=== PATIENT | female | born 1960 | race Caucasian/White ===

== ENCOUNTER 2019-01-12 11:36 | Emergency (ER) | payer OTHER ==
[~2019-01-12] VITALS: Ht 154.9 cm; Wt 49.9 kg
[2019-01-12 11:50] VITALS: BP 147/90
--- NOTE | 2019-01-12 12:00 | NUR ---
PT AMBULATES TO BED 11
--- NOTE | 2019-01-12 12:12 | NUR ---
PT BIB FAMILY C/O GENERAL WEAKNESS X 2 WEEKS. PCP DIAGNOSED HER WITH SALMONELLA AND THEN AT A VISIT ON MONDAY TO [facility] SHE WAS DIAGNOSED GENERAL WEAKNESS AND DISCHARGED. +N/V. 10/ HEADACHE. LAST KNOWN WELL WAS 2 WEEKS AGO. PT HAS FULL CLEAR SPEECH, EQUAL MUSCLE STRENGTH BILAT AND IS ABLE TO AMBULATE. DENIES N/V/D; SKIN IS PINK/WARM/DRY; AAOX4 WITH EVEN AND STEADY GAIT; LUNGS CLEAR BL; HR EVEN AND REGULAR; PT DENIES ANY FEVER, CP, SOB, OR COUGH AT THIS TIME; PATIENT STATES PAIN OF 10/10 AT THIS TIME; VSS; PATIENT POSITIONED FOR COMFORT; HOB ELEVATED; BEDRAILS UP X2; BED DOWN. ER MD MADE AWARE OF PT STATUS.FAMILY AT BEDSIDE.
[2019-01-12] MEDS ORDERED: NACL 0.9% 2,000 ML IV SCH (13:03)
[2019-01-12] MEDS ORDERED: PROMETHAZINE 25 MG/ML VIAL IM ONE (13:05)
[2019-01-12] MEDS ORDERED: LEVOFLOXACIN 500 MG/D5W PREMIX 100 ML IV ONE (13:05)
[2019-01-12 13:37] LABS: BASOPHILS % (AUTO) 0.5 % (0.0-2.0); EOSINOPHILS % (AUTO) 0.2 % (0.0-4.0); HEMATOCRIT 45.7 % (36-48); HEMOGLOBIN 16.2 g/dL (12.0-16.0); LYMPHOCYTES # (AUTO) 2.1 K/uL (2.5-16.5); LYMPHOCYTES % (AUTO) 20.3 % (20.5-51.1); MEAN CORPUSCULAR HEMOGLOBIN 33 pg (27-31); MEAN CORPUSCULAR HGB CONC 36 g/dL (33-37); MONOCYTES # (AUTO) 0.8 K/uL (0.8-1.0); MONOCYTES % (AUTO) 7.3 % (1.7-9.3); NEUTROPHILS # (AUTO) 7.6 K/uL (1.8-7.7); NEUTROPHILS % (AUTO) 71.7 % (42.2-75.2); PLATELET COUNT (AUTO) 546 K/uL (140-450); RED BLOOD CELL COUNT(AUTO) 4.86 MIL/uL (4.20-5.40); RED CELL DISTRIBUTION WIDTH 12.7 % (11.6-13.7); WHITE BLOOD COUNT (AUTO) 10.6 K/uL (4.8-10.8)
[2019-01-12 14:03] LABS: PROTHROMBIN TIME 10.7 secs (10.8-13.4)
[2019-01-12 14:04] LABS: CARBON DIOXIDE 23.2 mmol/L (21-32); CHLORIDE 104 mmol/L (98-107); CREATININE 1.1 mg/dL (0.6-1.3); GFR ARICAN-AMERICAN 65 mL/min (>90); GLUCOSE 100 mg/dL (74-106); POTASSIUM 3.2 mmol/L (3.5-5.1); SODIUM SERUM 141 mmol/L (136-145); UREA NITROGEN, BLOOD 30 mg/dL (7-18)
[2019-01-12 14:07] LABS: ACETONE, SERUM NEGATIVE (NEGATIVE)
[2019-01-12 14:08] LABS: ALBUMIN 3.8 g/dL (3.4-5.0); AMYLASE 89 U/L (25-115); ASPARTATE AMINOTRANSFERASE 21 U/L (15-37); GAMMA GLUTAMYL TRANSFERASE 63 U/L (7-51); LIPASE 168 U/L (73-393); MAGNESIUM 2.1 mg/dL (1.8-2.4); TOTAL BILIRUBIN 1.2 mg/dL (0.0-1.0)
--- NOTE | 2019-01-12 14:30 | NUR ---
URINE COLLECTED AND SENT TO LAB
[2019-01-12 15:27] LABS: BILIRUBIN,URINE 1+ (NEGATIVE); BLOOD, URINE TRACE-I (NEGATIVE); COLOR,URINE YELLOW (YELLOW); LEUKOCYTE ESTERASE ,URINE NEGATIVE (NEGATIVE); NITRITE, URINE NEGATIVE (NEGATIVE); UGLUCOSE NEGATIVE (NEGATIVE)
[2019-01-12 15:28] LABS: APPEARANCE,URINE HAZY (CLEAR)
[2019-01-12 15:38] LABS: RBC,URINE 0-5 /HPF (0-5)
[2019-01-12] MEDS ORDERED: LACTATED RINGERS 1,000 ML IV ONE (16:30)
[2019-01-12] MEDS ORDERED: POTASSIUM CHLORIDE 10 MEQ TABER PO ONE (16:40)
--- NOTE | 2019-01-12 19:00 | NUR ---
assisted pt to bathroom.
[2019-01-12 19:12] VITALS: BP 121/65
--- NOTE | 2019-01-12 19:13 | NUR ---
Patient discharged with v/s stable. Written and verbal after care instructions given and explained. Patient alert, oriented and verbalized understanding of instructions. Ambulatory with steady gait. All questions addressed prior to discharge. ID band removed. Patient advised to follow up with PMD. Rx of LEVAQUIN AND PROMETHAZINE given. Patient educated on indication of medication including possible reaction and side effects. Opportunity to ask questions provided and answered.
== END 2019-01-12 19:13 | disposition home or self-care (01) ==
LOC: MED 11:36
DX: E86.0 Dehydration (principal); A09 Infectious gastroenteritis and colitis, unspecified; E87.6 Hypokalemia; N39.0 Urinary tract infection, site not specified; F32.9 Major depressive disorder, single episode, unspecified; I10 Essential (primary) hypertension; Z90.49 Acquired absence of other specified parts of digestive tract
CPT/HCPCS: 36415; 71045; 74177; 80053; 81001; 82009; 82150; 82948; 82977; 83605; 83690; 83735; 84484; 85025; 85610; 85730; 87040; 87086; 93005; 96361; 96365; 96375; 99284; J1956; J2550; J7030; J7120; Q0092; Q9967